=== PATIENT | female | born 1950 | race Caucasian/White ===

== ENCOUNTER → 2016-10-22 | Outpatient (CLI) | payer OTHER, MEDICARE ==
[~2016-10-22] MED LIST: ASCO10003 PO; CALC8.5C PO; CETI10TA10 PO; CHOL1TAB46 PO; ENOX40IN SQ; FERR324T PO; FISH1CAP3 PO; HYDR25TA4 PO; LEVO88TA PO; LISI-729 PO; MULTTAB58 PO; OSTEO BIFLEX PO; OXYC-292 PO; [UNRECOGNIZED DRUG - OTHER] PO
[2016-10-22 13:39] LABS: BLOOD UREA NITROGEN 20 mg/dl (7-18); BUN/CREATININE RATIO 33.8 (10-20); CALCIUM 9.7 mg/dl (8.5-10.1); CARBON DIOXIDE 27 mmol/L (21-32); CHLORIDE 106 mmol/L (98-107); CHOLESTEROL 213 mg/dl (0-200); GLUCOSE 92 mg/dl (70-99); POTASSIUM 3.8 mmol/L (3.5-5.1); SODIUM 142 mmol/L (136-145); TRIGLYCERIDES 104 mg/dl (0-150); VERY LOW DENSITY LIPOPROT CALC 21 mg/dl
[2016-10-22 13:50] LABS: CHOLESTEROL/HDL RATIO 3.4; HDL CHOLESTEROL 63 mg/dl; LDL CHOLESTEROL CALCULATED 129 mg/dl; THYROID STIMULATING HORMONE 0.393 uIu/ml (0.300-4.500)
== END | disposition home or self-care (01) ==
LOC: C.LABBC 11:53
PROVIDERS: ATTEND Internal Medicine Geriatric Medicine
DX: Z00.00 Encounter for general adult medical examination without abnormal findings (principal); I10 Essential (primary) hypertension; E03.9 Hypothyroidism, unspecified

== ENCOUNTER → 2017-01-23 | Outpatient (CLI) | payer OTHER, MEDICARE ==
[~2017-01-23] MED LIST changes: +ASPI81TA28 PO; +CALCIUM CITRATE PO; +LEVO50TA6 PO; +VITAMIN B12 INJ
--- NOTE | 2017-01-30 07:27 | CODING QUERY MEDICAL NECESSITY ---
CQSUPPORTING DIAGNOSIS NEEDED A supporting diagnosis is required for the test/procedure performed on this patient in order for us to be reimbursed by the patient's insurance. Please provide a supporting diagnosis for the following test/procedure listed below next to the test name along with your signature. *If there is no additional diagnosis for this patient that would support the following test/procedure please document that below next to the test/procedure. Test(s)/Procedure(s) that require a supporting diagnosis: DOS 01/23/17 BONE MINERAL DENSITY STUDY ORDERED BY CATHERINE WATKINS Provider Signature: Date: Thank you Carlota Slater Health Information Management Once completed, please kindly fax back to [phone] For questions please call [phone]
== END | disposition home or self-care (01) ==
LOC: C.MAMM 12:40
PROVIDERS: ATTEND Physician Assistant Medical
DX: Z00.00 Encounter for general adult medical examination without abnormal findings (principal); Z13.820 Encounter for screening for osteoporosis

== ENCOUNTER → 2017-06-03 | Outpatient (CLI) | payer OTHER, MEDICARE ==
[~2017-06-03] MED LIST changes: -ASPI81TA28 PO; -CALCIUM CITRATE PO; -LEVO50TA6 PO; -VITAMIN B12 INJ
--- NOTE | 2017-06-05 11:20 | POLYSOMNOGRAPH REPORT ---
CLINICAL DATA: A 66-year-old female with a BMI of 22.2 with a previous history of sleep apnea, treated with CPAP. The patient lost over 160 pounds after bariatric surgery is concerned about whether she may need CPAP again. On the evening of 06/03/2017, home sleep apnea was performed using a Skubana type 3 monitor. RECORDING RESULTS: Total recording time was 9.8 hours. The patient monitoring time and estimated sleep time was 7.7 hours. RESPIRATORY DATA: Very mild sleep apnea was documented. The ERICA was 6. There were 34 obstructive apneic episodes and 13 hypopneic episodes. The longest respiratory event was 57 seconds. OXIMETRY DATA: Transient nocturnal hypoxemia was seen. Oxygen ayla was 82%. Mean saturation was 92%. Time below 89% was 3 minutes. HEART RATE DATA: Heart rates ranged from 47-57 beats per minute. SNORING DATA: Snoring was recorded intermittently throughout the night. IMPRESSION: Very mild sleep apnea/hypopnea with a respiratory event index of 6 without significant nocturnal hypoxemia. RECOMMENDATIONS: The patient should continue to practice good sleep hygiene and continue to keep her weight under control. Since she was described as having moderate sleep apnea with hypoxemia previously, her sleep apnea has improved significantly. A decision about treatment is dependent upon symptoms. Clinical correlation is needed. SANJANA
== END | disposition home or self-care (01) ==
LOC: C.NEUR 21:30
PROVIDERS: ATTEND Internal Medicine Geriatric Medicine
DX: G47.39 Other sleep apnea (principal)

== ENCOUNTER → 2017-07-28 | Day surgery (SDC) | payer OTHER, MEDICARE ==
[2017-07-15 12:41] VITALS: Ht 162.6 cm; Wt 54.1 kg
[~2017-07-28] VITALS: Ht 162.6 cm; Wt 54.1 kg
[~2017-07-28] MED LIST changes: -ASCO10003 PO; +ASPI81TA28 PO; -CALC8.5C PO; +CALCIUM CITRATE PO; -CETI10TA10 PO; -CHOL1TAB46 PO; -ENOX40IN SQ; -FERR324T PO; -FISH1CAP3 PO; -HYDR25TA4 PO; +LEVO50TA6 PO; -LEVO88TA PO; +LIDOCAINE HCL 2% 2 ML VIAL (20MG/ML) ONE; -LISI-729 PO; -OSTEO BIFLEX PO; -OXYC-292 PO; +PROPOFOL IV EMULSION 10 MG/ML 20 ML VIAL IV ONE; +SODIUM CHLORIDE 0.9% 500ML 500 ML IV ONE; +VITAMIN B12 INJ; -[UNRECOGNIZED DRUG - OTHER] PO
--- NOTE | 2017-07-28 10:27 | Endo History and Physical ---
History & Physical Date of Service: Jul 28, 2017. Chief Complaint: screening Referring Physician: Dr. Favio Darden History of Present Illness 67 yo CF who presents for screening colonoscopy. Past Surgical History Hx Cardiac Surgery: No Hx Internal Defibrillator: No Hx Abdominal Surgery: Yes (GB SURG-1992, GASTRIC SLEEVE 2015) Hx of Implantable Prosthesis: No Hx Post-Op Nausea and Vomiting: No Hx Cancer Surgery: No Hx Thoracic Surgery: No Hx Orthopedic: Yes (ORIF LEFT LEG, R TKA,L TKA) Hx Urinary Tract Surgery: No Social History Smoking Status: Never Smoker Hx Substance Use: No Hx Alcohol Use: No Allergies Coded Allergies: No Known Allergies (Verified , 07/28/17) Current Medications Reported Home Medications Medications Dose Route/Sig Max Daily Dose Days Date Category [Calcium Citrate] 1 Tab PO QPM 07/15/17 Reported Levothyroxine Sodium 50 Mcg Tab 1 Tab PO QAM 90 07/15/17 Reported [Vitamin B12] 1 Dose INJ [id number] 07/15/17 Reported [Calcium Citrate] 2 Tab PO QAM 07/15/17 Reported Aspirin Ec (Aspirin) 81 Mg Tab 81 Mg PO QPM 07/15/17 Reported Multivitamin (Multiple Vitamin) 1 Tab Tab 1 Tab PO BID 03/19/13 Reported Vital Signs Weight (Kilograms): 54.09 Height (Feet): 5 Height (Inches): 4 Date Time Temp Pulse Resp B/P (MAP) Pulse Ox O2 Delivery O2 Flow Rate FiO2 07/28/17 09:49 36.5 61 16 159/76 (103) 99 Room Air Physical Exam General Appearance: WD/WN, no apparent distress Respiratory/Chest: Auscultation: breath sounds normal Cardiovascular: Heart Auscultation: RRR Abdomen: Bowel Sounds: normal Inspection & Palpation: soft, non-distended, no tenderness, guarding & rebound Assessment and Plan Assessment: 67 yo CF who presents for screening colonoscopy. Plan: Proceed with colonoscopy.
--- NOTE | 2017-07-28 11:00 | Discharge Instructions ---
Endoscopy Patient Instructions Date / Procedure(s) Performed Jul 28, 2017. Colonoscopy Allergy Information Coded Allergies: No Known Allergies (Verified , 07/28/17) Discharge Date / Findings Jul 28, 2017. Diverticulosis Internal hemorrhoids Medication Instructions Stopped Medication(s): stopped baby ASA 07/23 OK to resume all medications today as prescribed Reported Home Medications Medications Dose Route/Sig Max Daily Dose Days Date Category [Calcium Citrate] 1 Tab PO QPM 07/15/17 Reported Levothyroxine Sodium 50 Mcg Tab 1 Tab PO QAM 90 07/15/17 Reported [Vitamin B12] 1 Dose INJ [id number] 07/15/17 Reported [Calcium Citrate] 2 Tab PO QAM 07/15/17 Reported Aspirin Ec (Aspirin) 81 Mg Tab 81 Mg PO QPM 07/15/17 Reported Multivitamin (Multiple Vitamin) 1 Tab Tab 1 Tab PO BID 03/19/13 Reported Provider Instructions Activity Restrictions - No exercising or heavy lifting for 24 hours. - Do not drink alcohol the day of the procedure. - Do not drive a car or operate machinery until the day after the procedure. - Do not make any important decisions or sign important papers in 24 hours after the procedure. Following Day: - Return to full activity which may include returning to work/school. Diet Start your diet with liquids and light foods (jello, soup, juice, toast). Then eat your usual diet if not nauseated. Treatment For Common After Affects For mild abdominal pain, bloating, or excessive gas: - Rest - Eat lightly - Lie on right side Follow-Up Information Follow-up with Dr. Favio Darden as scheduled Anesthesia Information What You Should Know You have had a procedure that required some medicine to reduce anxiety and discomfort. This treatment is called moderate sedation. After receiving the treatment, you may be sleepy, but you will be able to breathe on your own. The effects of the treatment may last for several hours. Follow these instructions along with Activity/Diet recommendations noted above: * Do NOT do anything where dizziness or clumsiness would be dangerous. * Rest quietly at home today, then you can be up and about tomorrow. * Have a responsible person stay with you the rest of today. * You may have had an I.V. today. If so, you may take the dressing off later today. Recommendations Call your doctor if: * Trouble breathing * Continuous vomiting for more than 24 hours * Temperature above 101 degrees * Severe abdominal pain or bloating * Pain not relieved by pain medicine ordered * There is increased drainage or redness from any incision * A large amount of rectal bleeding greater than 2-3 tablespoons. (If you had a polyp/s removed or have hemorrhoids, a small amount of blood - from the rectum is to be expected.) * You have any unanswered questions or concerns. IN THE EVENT OF A SERIOUS EMERGENCY, GO TO THE NEAREST EMERGENCY ROOM Your discharge instructions were prepared by provider Dez Alvarez. Patient Instructions Signature Page Caitlin Escobar Patient (or Guardian) Signature/Date: I have read and understand the instructions given to me by my caregivers. Caregiver/RN/Doctor Signature/Date: The above-named patient and/or guardian has received patient instructions on this date. + Original Patient Signature Page (only) stays with chart. Please make copy for patient.
--- NOTE | 2017-07-28 11:00 | GI REPORT ---
Procedure Date: 07/28/2017 9:59 AM Procedure: Colonoscopy Indications: Screening for colorectal malignant neoplasm Medicines: Monitored Anesthesia Care Complications: No immediate complications. Estimated Blood Loss: Estimated blood loss: none. Procedure: Pre-Anesthesia Assessment: - Prior to the procedure, a History and Physical was performed, and patient medications and allergies were reviewed. The patient's tolerance of previous anesthesia was also reviewed. The risks and benefits of the procedure and the sedation options and risks were discussed with the patient. All questions were answered, and informed consent was obtained. Prior Anticoagulants: The patient has taken aspirin, last dose was 5 days prior to procedure. ASA Grade Assessment: II - A patient with mild systemic disease. After reviewing the risks and benefits, the patient was deemed in satisfactory condition to undergo the procedure. After I obtained informed consent, the scope was passed under direct vision. Throughout the procedure, the patient's blood pressure, pulse, and oxygen saturations were monitored continuously. The scope was introduced through the anus and advanced to the terminal ileum. The colonoscopy was performed without difficulty. The patient tolerated the procedure well. The quality of the bowel preparation was good. The terminal ileum, ileocecal valve, appendiceal orifice, and rectum were photographed. Findings: The perianal and digital rectal examinations were normal. Multiple small-mouthed diverticula were found in the sigmoid colon. Non-bleeding internal hemorrhoids were found during retroflexion. The hemorrhoids were small. Impression: - Diverticulosis in the sigmoid colon. - Non-bleeding internal hemorrhoids. - No specimens collected. Recommendation: - Resume previous diet. - Continue present medications. - Repeat colonoscopy in 10 years for surveillance. - Return to primary care physician as previously scheduled. Dez Alvarez DO 07/28/2017 11:00:14 AM This report has been signed electronically. Note Initiated On: 07/28/2017 9:59 AM I attest to the content of the Intraoperative Record and orders documented therein, exceptions below
[2017-07-28 11:30] VITALS: BP 150/78; PULSE 60; O2SAT 100
--- NOTE | 2017-07-28 12:31 | Anesthesiology Progress Note ---
Anesthesia Post Op Note Date & Time Jul 28, 2017 at 12:31 Vital Signs Pain Intensity: 0 Vital Signs Past 12 Hours Date Time Temp Pulse Resp B/P (MAP) Pulse Ox O2 Delivery O2 Flow Rate FiO2 07/28/17 11:30 60 20 150/78 (102) 100 Room Air 07/28/17 11:15 60 18 112/63 (79) 100 Room Air 07/28/17 11:00 62 18 95/51 (66) 98 Room Air 07/28/17 09:49 36.5 61 16 159/76 (103) 99 Room Air Notes Mental Status: alert / awake / arousable, participated in evaluation Pt Amnestic to Procedure: Yes Nausea / Vomiting: adequately controlled Pain: adequately controlled Airway Patency, RR, SpO2: stable & adequate BP & HR: stable & adequate Hydration State: stable & adequate Anesthetic Complications: no major complications apparent
== END | disposition home or self-care (01) ==
LOC: C.GI 09:33
PROVIDERS: ATTEND Internal Medicine
DX: Z12.11 Encounter for screening for malignant neoplasm of colon (principal); K57.30 Diverticulosis of large intestine without perforation or abscess without bleeding; K64.8 Other hemorrhoids; Z79.82 Long term (current) use of aspirin; Z79.899 Other long term (current) drug therapy

== ENCOUNTER → 2018-01-09 | Outpatient (CLI) | payer OTHER, MEDICARE ==
[~2018-01-09] MED LIST changes: -LIDOCAINE HCL 2% 2 ML VIAL (20MG/ML) ONE; -PROPOFOL IV EMULSION 10 MG/ML 20 ML VIAL IV ONE; -SODIUM CHLORIDE 0.9% 500ML 500 ML IV ONE
[2018-01-09 13:45] LABS: HEMATOCRIT 41.7 % (37-47); HEMOGLOBIN 14.1 g/dL (12.0-16.0); MEAN CELL VOLUME 96.1 fL (80-100); MEAN CORPUSCULAR HEMOGLOBIN 32.5 pg (25-34); MEAN CORPUSCULAR HGB CONC 33.8 g/dl (32-36); MEAN PLATELET VOLUME 9.6 fL (7.4-10.4); PLATELET COUNT 169 K/uL (130-400); RED CELL DISTRIBUTION WIDTH CV 13.3 % (11.5-14.5); RED CELL DISTRIBUTION WIDTH SD 46.8 fL (36.4-46.3); WHITE BLOOD COUNT 3.74 K/uL (4.8-10.8)
[2018-01-09 14:43] LABS: ALBUMIN 3.8 gm/dl (3.4-5.0); AST/SGOT 47 U/L (15-37); BLOOD UREA NITROGEN 26 mg/dl (7-18); CALCIUM 9.1 mg/dl (8.5-10.1); CARBON DIOXIDE 30 mmol/L (21-32); CREATININE 0.76 mg/dl (0.60-1.20); GLUCOSE 75 mg/dl (70-99); POTASSIUM 3.6 mmol/L (3.5-5.1); SODIUM 140 mmol/L (136-145)
[2018-01-09 14:46] LABS: ALKALINE PHOSPHATASE 67 U/L (45-117); ALT/SGPT 108 U/L (12-78); TOTAL PROTEIN 6.9 gm/dl (6.4-8.2)
== END | disposition home or self-care (01) ==
LOC: C.LABPBG 08:02
PROVIDERS: ATTEND Physician Assistant
DX: K76.0 Fatty (change of) liver, not elsewhere classified (principal)

== ENCOUNTER → 2018-04-29 | Day surgery (SDC) | payer OTHER, MEDICARE ==
[2018-04-17 08:54] VITALS: Ht 162.6 cm; Wt 52.3 kg
[~2018-04-29] VITALS: Ht 162.6 cm; Wt 52.3 kg
[~2018-04-29] MED LIST changes: +500ML BSS 0.3ML EPI 1:1000PF IRRIG ONE; +ACETAMINOPHEN 325 MG TAB PO PRN; +AMVISC PLUS 0.8ML SYRINGE INT OCU ONE; +ATROPINE SULFATE 0.1 MG/ML 5ML SYR IV PRN; +AcetaZOLAMIDE 250 MG TAB PO SCH; +BETAXOLOL HCL 0.25% OP SUSP PER DROP CHARGE OPR SCH; +BRIMONIDINE TART 0.2% OP SOLN PER DROP CHARGE ONE; +BSS FLUSH ONE; +ENDOCOAT 0.85ML SYRINGE INT OCU ONE; +EpHEDrine SULFATE INJ 50 MG/ML AMP IV PRN; +EpINEphrine INJ 1MG/ML AMP 1 MG/ML AMP ONE; +FENTANYL CITRATE INJ 50 MCG/1 ML 2 ML VIAL IV PRN; +LACTATED RINGER'S 1000ML 500 ML IV SCH; +LIDOCAINE 4% OP SOLN DROP CHARGE ONE; +LIDOCAINE 4% OP SOLN DROP CHARGE OPR SCH; +LIDOCAINE HCL 1% MPF 2 ML VIAL ONE; +MIDAZOLAM HCL 1 MG/ML 2ML VIAL ONE; +MIX: 4ML BSS 1ML EPI 1:1000 PF INSTIL ONE; +MOXIFLOXACIN OPH SOLN PER DROP CHARGE ONE; +ONDANSETRON INJ 2 MG/ML 2 ML VIAL IV PRN; +PHENYLEPHRINE HCL 10% OP SOLN PER DROP CHARGE OPR SCH; +POVIDONE-IODINE OP SOLN 30 ML BTL ONE; +PROPARACAINE 0.5% OP SOLN PER DROP CHARGE OPR SCH; +TOBRAMYCIN/DEXAMETHASONE OPH OINT PER APPLN CHARGE ONE
--- NOTE | 2018-04-29 07:14 | History & Physical Bridge - SC ---
H&P Re-Evaluation Bridge Note: I have examined the patient, reviewed the History & Physical and in the interval since the performance of the History & Physical I have noted the following changes of clinical significance: No changes noted
[2018-04-29] MEDS: PHENYLEPHRINE HCL 2.5% OP SOLN PER DROP CHARGE OPR SCH ×2 (07:28→07:33)
[2018-04-29] MEDS: TROPICAMIDE 1% OP SOLN PER DROP CHARGE OPR SCH ×2 (07:29→07:34)
[2018-04-29] MEDS: CYCLOPENTOLATE HCL 1% OP SOLN PER DROP CHARGE OPR SCH ×2 (07:30→07:35)
[2018-04-29] MEDS: MOXIFLOXACIN OPH SOLN PER DROP CHARGE OPR SCH ×2 (07:31→07:41)
--- NOTE | 2018-04-29 08:17 | [facility] Operative Report ---
Operative Report Date of Service Apr 29, 2018. Operative Report 1. PREOPERATIVE DIAGNOSIS: Senile nuclear cataract, right eye. 2. POSTOPERATIVE DIAGNOSIS: Senile nuclear cataract, right eye. 3. PROCEDURE: Phacoemulsification of right cataract with posterior chamber lens implant, type [employer], model MI60L, power +23.0 diopters. ANESTHESIA: Local standby. SURGEON: Dr. Marina. COMPLICATIONS: None. OPERATING TIME: 10 minutes. 4. OPERATION AND FINDINGS: DESCRIPTION OF PROCEDURE: The right pupil was dilated. The anesthetic was administered using a topical technique. The right eye was prepped and draped. A speculum was placed. A clear corneal incision was formed. The chamber was filled with Amvisc Plus and Endocoat. Epinephrine solution was used. A paracentesis was placed. A capsulorrhexis was performed. The nucleus was hydrodissected. The lens was removed with phacoemulsification. Time was 2.60 seconds. The aspiration unit was used to remove the cortex. The capsule was filled with Amvisc Plus. The lens implant was folded and placed into the capsule. The incision was hydrated. The Amvisc was aspirated. The wound was secure. The chamber was deep. The pupil was round. Brimonidine, TobraDex ointment and Vigamox solution were placed. The speculum was removed. The patient was returned to the Recovery Room in stable condition. I attest to the content of the Intraoperative Record and any orders documented therein. Any exceptions are noted below. The scribe's documentation has been prepared in my presence, under my direction and personally reviewed by me in its entirety. I confirm that the note above accurately reflects all work, treatment, procedures, and medical decision making performed by me. I personally scribed for Nixon Marina M.D. ([email or web address]) on 04/29/18 at 08:17. Electronically submitted by Magui Morataya ([email or web address]).
--- NOTE | 2018-04-29 08:19 | Discharge Instructions-SurgCtr ---
Discharge Instructions Date of Service Apr 29, 2018. Visit Reason for Visit: Cataract Right Eye Discharge Discharge Diagnosis / Problem: lens implant right eye Discharge Goals Goal(s): Improve function Activity Recommendations Activity Limitations: resume your previous activity Lifting Limitations: no more than 10 pounds Exercise/Sports Limitations: gradually increase as tolerated May Resume Sexual Activity: when tolerated Shower/Bathe: tomorrow Driving or Machine Use: resume 1 day after discharge Anesthesia . Post Anesthesia Instructions: If you have had General Anesthesia or IV Sedation: * Do not drive today. * Resume driving when surgeon permits. * Do not make important decisions or sign legal documents today. * Call surgeon for: 1. Temperature elevations greater than 101 degrees F. 2. Uncontrollable pain. 3. Excessive bleeding. 4. Persistent nausea and vomiting. 5. Medication intolerance (nausea, vomiting or rash). * For nausea and vomiting use only clear liquids such as: tea, soda, bouillon until nausea subsides, then gradually increase diet as tolerated. * If you have any concerns or questions, call your surgeon's office. If physician is unavailable and it is an emergency, call 911 or go to the nearest emergency room. . Instructions / Follow-Up Instructions / Follow-Up ACTIVITY RECOMMENDATIONS: * Light activities. * Mild irritation and blurred vision are common for the first few days. * You may walk outside, read, watch television. * Redness around the white part of the eye is common. MEDICATIONS: Resume previous medications unless instructed otherwise by your surgeon. * Take white Diamox (Acetazolamide) tablet at 1 pm today. Start all eye drops at 1 pm today: * Eye drops (today and tomorrow): Prednisone - one drop in operative eye every 3 hours while awake Ofloxacin - one drop in operative eye every 3 hours while awake SPECIAL CARE INSTRUCTIONS: * Tape plastic shield over eye to sleep at night. Call your doctor at with any concerns or problems. FOLLOW UP VISIT: Follow-up with Dr Marina at [facility] as scheduled. Diet Recommendations Home Diet: no limitations Procedures Procedures Performed: Right Cataract Phacoemulsification With Intraocular Lens Implant Pending Studies Studies pending at discharge: no Medical Emergencies . Who to Call and When: Medical Emergencies: If at any time you feel your situation is an emergency, please call 911 immediately. . Non-Emergent Contact Non-Emergency issues call your: Irs Agent Call Non-Emergent contact if: your pain is not controlled [phone] . . "Provider Documentation" section prepared by Nixon Marina. .
[2018-04-29 08:22] VITALS: TEMP 36.4
--- NOTE | 2018-04-29 08:34 | Anesthesia Progress Nt - [facility] ---
Anesthesia Post Op Note Date & Time Apr 29, 2018 at 08:34 Vital Signs Pain Intensity: 0 Vital Signs Past 12 Hours Date Time Temp Pulse Resp B/P (MAP) Pulse Ox O2 Delivery O2 Flow Rate FiO2 04/29/18 08:22 36.4 48 16 144/78 (100) 100 Room Air 04/29/18 07:18 36.5 54 16 164/89 (114) 100 Room Air Notes Mental Status: alert / awake / arousable, participated in evaluation Pt Amnestic to Procedure: Yes Nausea / Vomiting: adequately controlled Pain: adequately controlled Airway Patency, RR, SpO2: stable & adequate BP & HR: stable & adequate Hydration State: stable & adequate Anesthetic Complications: no major complications apparent
[2018-04-29 08:47] VITALS: BP 150/85; PULSE 47; O2SAT 100
== END | disposition home or self-care (01) ==
LOC: X.SURG 07:10
PROVIDERS: ATTEND Specialist
DX: H25.11 Age-related nuclear cataract, right eye (principal); E03.9 Hypothyroidism, unspecified; Z79.82 Long term (current) use of aspirin; Z79.899 Other long term (current) drug therapy